=== PATIENT | female | born 1950 ===

== ENCOUNTER 2025-10-14 11:52 | Day surgery (SDC) | payer MEDICARE, OTHER ==
[~2025-10-14] VITALS: Ht 154.9 cm; Wt 71.6 kg
[~2025-10-14 11:52] MED LIST: Balanced Salt Epinephrine Irrigation Solution 500 mL IR SCH; Moxifloxacin HCL 0.5 MG/0.1 ML 0.4MLSYR RIGHTEYE SCH; Ondansetron 4 MG SoluTab MM PRN; PHENYLEPHRINE\\TROPICAMIDE\\TETRACAINE OPHTHALMIC DILATING SOLN RIGHTEYE PRN; Povidone-Iodine 450 DROP/30 ML Solution ONE; Povidone-Iodine 450 DROP/30 ML Solution RIGHTEYE SCH; Tetracaine HCl/Pf 0.5% Opth Soln 4 ml ONE
--- NOTE | 2025-10-14 12:55 | NUR ---
10/14/25 1255 Yoselyn Gonzales CALL LIGHT WITHIN REACH. EYE DROPS IN AROUND 1251. PT ON CONTINOUS PULSE OXIMETER FOR CLOSE MONITORING.
--- NOTE | 2025-10-14 13:36 | NUR ---
10/14/25 1336 Audrey Fisher 1332 BP:131/73 HR:68 O2:95% RESP:16
== END 2025-10-14 14:10 | disposition home or self-care (01) ==
LOC: ORSCSDS 11:52
PROVIDERS: Student in an Organized Health Care Education/Training Program
PROC: 08RJ3JZ Replacement of Right Lens with Synthetic Substitute, Percutaneous Approach (ICD-10-PCS; principal; 2025-10-14 13:30)
DX: H25.811 Combined forms of age-related cataract, right eye (principal); Z96.1 Presence of intraocular lens
CPT/HCPCS: A9270; V2632